=== PATIENT | male | born 1955 | race African-American/Black ===

== ENCOUNTER 2018-01-30 12:51 | Inpatient (IN) | payer OTHER ==
[~2018-01-30 12:51] MED LIST: HEPARIN 5,000 UNIT/0.5 ML VIAL
[2018-01-30 13:00] LABS: ADD MAN DIFF? NO
[2018-01-30 13:02] LABS: BASOPHILS % 0.2 % (0.0-2.0); EOSINOPHILS % 0.1 % (0.0-7.0); HEMATOCRIT 40.6 % (42.0-52.0); HEMOGLOBIN 13.8 g/dl (14.0-18.0); LYMPHOCYTES # 1.7 10^3/ul (0.8-2.9); LYMPHOCYTES % 18.9 % (15.0-51.0); MEAN CORPUSCULAR HEMOGLOBIN 30.1 pg (29.0-33.0); MEAN CORPUSCULAR VOLUME 88.5 fl (82.0-101.0); MEAN PLATELET VOLUME 11.1 fl (7.4-10.4); MONOCYTE # 0.4 10^3/ul (0.3-0.9); NEUTROPHIL # 6.7 10^3/ul (1.6-7.5); NEUTROPHILS % 76.3 % (39.0-77.0); PLATELET COUNT 156 10^3/UL (140-415); RED BLOOD COUNT 4.59 10^6/ul (4.70-6.10); RED CELL DISTRIBUTION WIDTH 12.8 % (11.5-14.5)
[2018-01-30 13:02] LABS: WHITE BLOOD COUNT 8.7 10^3/ul (4.8-10.8)
[2018-01-30] MEDS ORDERED: NITROGLYCERIN (IC) 100 MCG/ML INJ ×2 (13:08)
[2018-01-30] MEDS ORDERED: IODIXANOL LOCM 100 ML BTL ×3 (13:08→14:30)
[2018-01-30] MEDS ORDERED: LIDOCAINE 1% (MDV) 10 ML INJ (13:08)
[2018-01-30] MEDS ORDERED: HEPARIN 1000 UNITS/ML 10 ML INJ (13:08)
[2018-01-30] MEDS ORDERED: MIDAZOLAM 1 MG/ML 2 ML INJ (13:08)
[2018-01-30] MEDS ORDERED: IODIXANOL LOCM 50 ML BTL (13:08)
[2018-01-30] MEDS: HEPARIN 1000 UNITS/ML 10 ML INJ IV (13:08)
[2018-01-30] MEDS ORDERED: VERAPAMIL 5 MG INJ (13:08)
[2018-01-30] MEDS ORDERED: FENTAnyl 50 MCG/ML VIAL (13:08)
[2018-01-30 13:21] LABS: ANION GAP 11 (8-16); BLOOD UREA NITROGEN 9 mg/dl (7-20); CALCIUM 9.2 mg/dl (8.4-10.2); CARBON DIOXIDE 27 mmol/L (21-31); CHLORIDE 107 mmol/L (97-110); GLUCOSE 166 mg/dl (70-220); POTASSIUM 3.8 mmol/L (3.5-5.1); SODIUM 141 mmol/L (135-144)
[2018-01-30] MEDS ORDERED: BIVALIRUDIN 250MG /NS 50 ML 50 ML IVPB ×2 (13:22→14:03)
[2018-01-30 13:24] LABS: INR 1.01; PROTIME 13.4 Sec (11.9-14.9)
[2018-01-30 13:33] LABS: TROPONIN-I 0.052 ng/ml (0.000-0.120)
[2018-01-30] MEDS ORDERED: TICAGRELOR 90 MG TABLET (13:34)
[2018-01-30] MEDS ORDERED: OXYCODONE/ACETAMINOPHEN (5/325) TAB PO (15:00)
[2018-01-30] MEDS ORDERED: ACETAMINOPHEN 325 MG TAB PO (15:00)
[2018-01-30] MEDS ORDERED: ONDANSETRON 4 MG INJ IV (15:00)
[2018-01-30] MEDS: SOD CHLORIDE 0.9% 1,000 ML IV ×2 (16:57→23:48)
[2018-01-30 17:37] LABS: ADD MAN DIFF? NO
[2018-01-30 17:39] LABS: WHITE BLOOD COUNT 7.5 10^3/ul (4.8-10.8)
[2018-01-30 17:39] LABS: BASOPHILS % 0.1 % (0.0-2.0); HEMATOCRIT 31.4 % (42.0-52.0); HEMOGLOBIN 10.3 g/dl (14.0-18.0); LYMPHOCYTES % 12.8 % (15.0-51.0); MEAN CORPUSCULAR HGB CONC 32.8 g/dl (32.0-37.0); MEAN CORPUSCULAR VOLUME 88.5 fl (82.0-101.0); MEAN PLATELET VOLUME 10.6 fl (7.4-10.4); MONOCYTE # 0.4 10^3/ul (0.3-0.9); MONOCYTES % 5.6 % (0.0-11.0); NEUTROPHIL # 6.1 10^3/ul (1.6-7.5); NEUTROPHILS % 81.2 % (39.0-77.0); PLATELET COUNT 159 10^3/UL (140-415); RED BLOOD COUNT 3.55 10^6/ul (4.70-6.10)
[2018-01-30 17:56] LABS: CREATINE KINASE 117 IU/L (23-200)
[2018-01-30 18:10] LABS: ANION GAP 3 (8-16); BLOOD UREA NITROGEN 4 mg/dl (7-20); CARBON DIOXIDE 16 mmol/L (21-31); CHLORIDE 126 mmol/L (97-110); CREATININE 0.47 mg/dl (0.61-1.24); GLUCOSE 57 mg/dl (70-220); SODIUM 143 mmol/L (135-144)
[2018-01-30 18:13] LABS: CALCIUM 4.6 mg/dl (8.4-10.2); POTASSIUM 2.1 mmol/L (3.5-5.1)
[2018-01-30 18:21] LABS: CK-MB 5.82 ng/ml (0.0-2.4)
[2018-01-30] MEDS: hydrALAzine 20 MG INJ IV (19:00)
[2018-01-30] MEDS: morphine 4 MG/ML VIAL IV (20:00)
[2018-01-30] MEDS: ONDANSETRON 4 MG INJ IV (20:00)
[2018-01-30 20:38] LABS: ALANINE AMINOTRANSFERASE 25 IU/L (13-69); ALBUMIN 4.1 g/dl (3.3-4.9); ALBUMIN/GLOBULIN RATIO 1.32; ALKALINE PHOSPHATASE 73 IU/L (42-121); ANION GAP 13 (8-16); ASPARTATE AMINO TRANSFERASE 35 IU/L (15-46); BILIRUBIN,INDIRECT 0.4 mg/dl (0-1.1); BILIRUBIN,TOTAL 0.4 mg/dl (0.2-1.3); BLOOD UREA NITROGEN 8 mg/dl (7-20); CARBON DIOXIDE 26 mmol/L (21-31); CHLORIDE 107 mmol/L (97-110); CREATININE 0.94 mg/dl (0.61-1.24); GLUCOSE 98 mg/dl (70-220); POTASSIUM 3.9 mmol/L (3.5-5.1); SODIUM 142 mmol/L (135-144); TOTAL PROTEIN 7.2 g/dl (6.1-8.1)
[2018-01-30] MEDS: DOCUSATE SODIUM 100 MG CAP PO (20:51)
[2018-01-30] MEDS: ATORVASTATIN 80 MG TAB PO (20:51)
[2018-01-30] MEDS: FAMOTIDINE 20 MG TAB PO (21:00)
[2018-01-30] MEDS ORDERED: ATROPINE 1 MG/10 ML SYRINGE (21:27)
[2018-01-30] MEDS: [UNRECOGNIZED DRUG - OTHER] IV (22:23)
[2018-01-30] MEDS: SOD CHLORIDE 0.9% IV (22:34)
[2018-01-30] MEDS: ABCIXIMAB IV (22:34)
[2018-01-31 00:31] LABS: CREATINE KINASE 220 IU/L (23-200)
[2018-01-31 00:43] LABS: CK INDEX 5.5
[2018-01-31 06:37] LABS: ADD MAN DIFF? NO
[2018-01-31 06:46] LABS: WHITE BLOOD COUNT 8.3 10^3/ul (4.8-10.8)
[2018-01-31 06:46] LABS: BASOPHILS % 0.2 % (0.0-2.0); EOSINOPHILS % 0.2 % (0.0-7.0); HEMATOCRIT 33.8 % (42.0-52.0); HEMOGLOBIN 11.5 g/dl (14.0-18.0); LYMPHOCYTES # 1.9 10^3/ul (0.8-2.9); LYMPHOCYTES % 22.9 % (15.0-51.0); MEAN CORPUSCULAR HEMOGLOBIN 29.9 pg (29.0-33.0); MONOCYTE # 0.7 10^3/ul (0.3-0.9); MONOCYTES % 8.3 % (0.0-11.0); NEUTROPHIL # 5.7 10^3/ul (1.6-7.5); PLATELET COUNT 165 10^3/UL (140-415); RED BLOOD COUNT 3.84 10^6/ul (4.70-6.10); RED CELL DISTRIBUTION WIDTH 12.8 % (11.5-14.5)
[2018-01-31 07:07] LABS: CREATINE KINASE 211 IU/L (23-200)
[2018-01-31 07:16] LABS: ALANINE AMINOTRANSFERASE 26 IU/L (13-69); ALBUMIN 3.2 g/dl (3.3-4.9); ALBUMIN/GLOBULIN RATIO 1.14; ALKALINE PHOSPHATASE 56 IU/L (42-121); ANION GAP 9 (8-16); ASPARTATE AMINO TRANSFERASE 33 IU/L (15-46); BILIRUBIN,INDIRECT 0.9 mg/dl (0-1.1); BILIRUBIN,TOTAL 0.9 mg/dl (0.2-1.3); BLOOD UREA NITROGEN 8 mg/dl (7-20); CALCIUM 8.3 mg/dl (8.4-10.2); CARBON DIOXIDE 25 mmol/L (21-31); CHLORIDE 109 mmol/L (97-110); CHOL/HDL RATIO 4.6 RATIO; CHOLESTEROL 158 mg/dl (100-200); CREATININE 0.93 mg/dl (0.61-1.24); GLUCOSE 97 mg/dl (70-220); HDL CHOLESTEROL 34 mg/dl (30-78); LDL CHOLESTEROL,CALCULATED 111 mg/dl; MAGNESIUM 1.7 mg/dl (1.7-2.5); POTASSIUM 3.7 mmol/L (3.5-5.1); SODIUM 139 mmol/L (135-144); TRIGLYCERIDES 67 mg/dl (0-149)
[2018-01-31 07:20] LABS: CK INDEX 4.5
[2018-01-31 07:38] LABS: FREE T4 (FREE THYROXINE) 0.93 ng/dl (0.78-2.44)
[2018-01-31 07:40] LABS: THYROID STIMULATING HORMONE 0.706 MIU/L (0.465-4.680)
[2018-01-31] MEDS: CLOPIDOGREL 75 MG TAB PO (09:03)
[2018-01-31] MEDS: FAMOTIDINE 20 MG TAB PO ×2 (09:03→22:20)
[2018-01-31] MEDS: LOSARTAN 50 MG TAB PO (09:03)
[2018-01-31] MEDS: DOCUSATE SODIUM 100 MG CAP PO ×2 (09:04→21:00)
[2018-01-31] MEDS: ASPIRIN (EC) 81 MG TAB PO (09:04)
[2018-01-31] MEDS: ATORVASTATIN 80 MG TAB PO (22:20)
[2018-01-31] MEDS: morphine 2 MG INJ IV (22:21)
[2018-02-01] MEDS: FAMOTIDINE 20 MG TAB PO (10:30)
[2018-02-01] MEDS: ASPIRIN (EC) 81 MG TAB PO (10:31)
[2018-02-01] MEDS: CLOPIDOGREL 75 MG TAB PO (10:31)
[2018-02-01] MEDS: LOSARTAN 50 MG TAB PO (10:31)
[2018-02-01] MEDS: DOCUSATE SODIUM 100 MG CAP PO (10:31)
== END 2018-02-01 14:37 | disposition home or self-care (01) | DRG 251 ==
LOC: MS4 01-31 09:56 → E/R 12:51 → CCL 13:06 → SDS 13:06 → ICU 15:05 → CCL 17:47 → ICU 17:47
PROC: 02703ZZ Dilation of Coronary Artery, One Artery, Percutaneous Approach (ICD-10-PCS; principal; 2018-01-30 13:00)
PROC: 4A023N7 Measurement of Cardiac Sampling and Pressure, Left Heart, Percutaneous Approach (ICD-10-PCS; 2018-01-30 13:00)
PROC: B211YZZ Fluoroscopy of Multiple Coronary Arteries using Other Contrast (ICD-10-PCS; 2018-01-30 13:00)
DX: I21.19 ST elevation (STEMI) myocardial infarction involving other coronary artery of inferior wall (principal); G20 Parkinson's disease; I25.10 Atherosclerotic heart disease of native coronary artery without angina pectoris; Z95.5 Presence of coronary angioplasty implant and graft; I10 Essential (primary) hypertension; I77.1 Stricture of artery; E78.5 Hyperlipidemia, unspecified; I25.2 Old myocardial infarction; F17.200 Nicotine dependence, unspecified, uncomplicated
CPT/HCPCS: 71045; 80048; 80053; 80061; 82550; 82553; 83735; 84439; 84443; 84484; 85025; 85610; 85730; 93005; 93306; 93458; 96374; 99291-25